=== PATIENT | male | born 1975 | race Caucasian/White ===

== ENCOUNTER 2025-02-03 12:31 | Emergency (ER) | payer OTHER, SELFPAY ==
[2025-02-03 12:46] VITALS: BP 134/78; PULSE 55; RESP 16; TEMP 36.6; O2SAT 98
--- NOTE | 2025-02-03 12:53 | CRLHL7_ITS ---
For Patients: As a result of the Cures Act, medical imaging exams and procedure reports are released immediately into your electronic medical record. You may view this report before your referring provider. If you have questions, please contact your health care provider. Indication: PAIN, TRIP ON STEP Technique: Three views of the right ankle Comparison: None Findings/Impression: No acute fracture or malalignment. Likely sequela of chronic, healed fracture deformities of the distal tibia and fibula. No degenerative or inflammatory arthropathy. No suspicious osseous lesions. The soft tissues are unremarkable. Dictated by Brett Suazo MD @ 02/03/2025 1:32:27 PM (Electronically Signed)
--- NOTE | 2025-02-03 12:53 | CRLHL7_ITS ---
For Patients: As a result of the Century Cures Act, medical imaging exams and procedure reports are released immediately into your electronic medical record. You may view this report before your referring provider. If you have questions, please contact your health care provider. Indication: PAIN, TRIP ON STEP Technique: Three views of the right foot Comparison: None Findings/Impression: No acute fracture or malalignment. No degenerative or inflammatory arthropathy. No suspicious osseous lesions. Small os naviculare and os subtibiale. The soft tissues are unremarkable. Dictated by Brett Suazo MD @ 02/03/2025 1:29:54 PM (Electronically Signed)
--- NOTE | 2025-02-03 13:59 | ED_ITS ---
HPI - Extremity Injury (Lower) General Date Seen: 02/03/25 Chief Complaint: Extremity Pain/Injury, Lower Stated Complaint: hurt right foot Time Seen by Provider: 02/03/25 13:25 Source: patient Mode of arrival: ambulatory Limitations: no limitations History of Present Illness HPI Narrative: Patient is a 49-year-old male presenting to emergency department for right foot pain. He states earlier today he was walking up some steps when his foot slipped and he states he injured it. He was wearing steel-toed shoes and was concerned that could have caused an injury. Was walking and it but the pain was getting much worse so he was concerned and came to the emergency department for evaluation. Denies any other injuries. No previous injuries to this foot before. Pain is mostly at the base of his left great toe and he notices the most he pushes medial to lateral on the toe. No other injuries noted. No other concerns. Related Data Allergies Allergy/AdvReac Type Severity Reaction Status Date / Time Penicillins Allergy Intermediate Unknown Verified 02/03/25 12:50 Review of Systems Narrative: Pertinent systems reviewed and were negative unless stated in HPI PFSH PFSH Medical History Cough ?R05.9 - Cough, unspecified (ICD-10) Acute maxillary sinusitis ?J01.00 - Acute maxillary sinusitis, unspecified (ICD-10) Bronchitis ?J40 - Bronchitis, not specified as acute or chronic (ICD-10) Social History Smoking Status: Never smoker Exam Narrative: Exam Narrative: Const: Well-nourished, Well-developed, in mild distress Eyes: No conjunctival injection, and symmetrical lids HENT: Atraumatic external nose and ears. Moist mucous membranes. CVS: Dorsalis pedis pulse 2+ and equal in lower extremities MSK:Extremities w/o deformity, Normal Active ROM, mild tenderness noted at the base of the right great toe and partially medial to laterally. No other tenderness noted on exam Skin: Warm, Dry. No rashes or lesions. Neuro: Normal Muscle tone, No focal neurological deficits. Psych: Awake, Alert, & Oriented x3. Appropriate mood and affect. Const: Vital Signs, click to edit/add: Vital Signs - 24 hr 02/03/25 12:46 Temperature 97.9 F Pulse Rate [Pulse Oximeter] 55 L Respiratory Rate 16 Blood Pressure [Ri ght Upper Arm] 134/78 Pulse Oximetry 98 Oxygen Delivery Me thod Room Air Course Vital Signs Vital signs: Initial Vital Signs Temperature 97.9 F 02/03/25 12:46 Temperature Source Temporal Artery Scan 02/03/25 12:46 Pulse Rate 55 L 02/03/25 12:46 Pulse Rhythm Regular 02/03/25 12:46 Respiratory Rate 16 02/03/25 12:46 Blood Pressure 134/78 02/03/25 12:46 Blood Pressure Mean 96 02/03/25 12:46 Blood Pressure Position Sitting 02/03/25 12:46 Pulse Oximetry 98 02/03/25 12:46 Oxygen Delivery Method Room Air 02/03/25 12:46 Vital Signs Temperature 97.9 F 02/03/25 12:46 Pulse Rate 55 L 02/03/25 12:46 Respiratory Rate 16 02/03/25 12:46 Blood Pressure 134/78 02/03/25 12:46 Pulse Oximetry 98 02/03/25 12:46 Oxygen Delivery Method Room Air 02/03/25 12:46 Temperature 97.9 F 02/03/25 12:46 Pulse Rate 55 L 02/03/25 12:46 Respiratory Rate 16 02/03/25 12:46 Blood Pressure 134/78 02/03/25 12:46 Pulse Oximetry 98 02/03/25 12:46 Oxygen Delivery Method Room Air 02/03/25 12:46 MDM - Extremity Injury (Lower) MDM Narrative Medical decision making narrative: Patient is a 49 year old male presenting for right foot pain. In triage x-rays of his foot and ankle were ordered. They returned showing no acute concerning abnormalities as interpreted by myself in the radiologist. He is neurovascular intact. Most likely sprain the toe and is safe for discharge. He is agreeable to this plan. Imaging Data right foot x-ray: Attestation: I have reviewed the pertinent imaging results. Radiologist's impression: No acute fracture or malalignment. No degenerative or inflammatory arthropathy. No suspicious osseous lesions. Small os naviculare and os subtibiale. The soft tissues are unremarkable. Dictated by Brett Suazo MD @ 02/03/2025 1:29:54 PM Right ankle x-ray: Attestation: I have reviewed the pertinent imaging results. Radiologist's impression: No acute fracture or malalignment. Likely sequela of chronic, healed fracture deformities of the distal tibia and fibula. No degenerative or inflammatory arthropathy. No suspicious osseous lesions. The soft tissues are unremarkable. Dictated by Brett Suazo MD @ 02/03/2025 1:32:27 PM Discharge Plan Discharge Clinical Impression: Foot sprain Qualifiers: Encounter type: initial encounter Laterality: right Qualified Code(s): S93.601A - Unspecified sprain of right foot, initial encounter Patient Disposition: Home, Self-Care Condition: Stable Instructions: Foot Sprain (ED) Additional Instructions: Take Tylenol and ibuprofen for pain. You are safe to weight bear as tolerated. If pain is not improving in 1 week recommend following up with your primary care provider for repeat imaging. Return to emergency department for new or worsening symptoms. Follow Up/Referrals: Eyal Hernandez MD [Primary Care Provider, Family Practice] Stand Alone Forms: [employer] Info Instructions
== END 2025-02-03 14:10 | disposition home or self-care (01) ==
PROVIDERS: Emergency Provider Student in an Organized Health Care Education/Training Program; PCP Family Medicine
DX: S93.601A Unspecified sprain of right foot, initial encounter (principal); W10.9XXA Fall (on) (from) unspecified stairs and steps, initial encounter
CPT/HCPCS: 73610; 73630; 99283